=== PATIENT | male | born 1985 | race Caucasian/White ===

== ENCOUNTER 2020-09-22 15:31 | Emergency (ER) | payer OTHER, SELFPAY ==
--- NOTE | ~2020-09-22 | XR_ITS ---
XR sternum min 2V DATE: 09/22/2020 16:29 INDICATION: Squeezing injury. Sternal and right anterior rib pain TECHNIQUE: AP and lateral views. COMPARISON: None FINDINGS: No sternal fracture or bone destruction is evident. IMPRESSION: Negative Reviewed, dictated and finalized at location A. OR BUDGET ANALYST IMPRESSION: Negative
--- NOTE | ~2020-09-22 | XR_ITS ---
XR ribs RT 2V w CXR 2V DATE: 09/22/2020 16:29 INDICATION: Wheezing injury. Pain of the sternum and right anterior ribs TECHNIQUE: Standing PA and lateral views of the chest. 3 views of the right ribs. COMPARISON: 09/22/2020 sternum FINDINGS: Bilateral hyperinflation. No pulmonary infiltrate or consolidation, pleural effusion or pul monary vascular congestion or pneumothorax. Normal heart size. No hilar or mediastinal enlargement. No right rib fracture or bone destruction is evident. IMPRESSION: Bilateral hyperinflation Reviewed, dictated and finalized at location A. GIOUS EDUCATION TEACHER IMPRESSION: Bilateral hyperinflation
[2020-09-22 15:41] VITALS: BP 143/77; PULSE 93; RESP 16; TEMP 36.9; O2SAT 99
--- NOTE | 2020-09-22 16:11 | ED.GENADULT ---
HPI - General Adult General Chief complaint: Back Pain/Injury Stated complaint: rib pain Time Seen by Provider: 09/22/20 16:10 Source: patient Mode of arrival: ambulatory Limitations: no limitations History of Present Illness HPI narrative: 35-year-old male patient presents to the [facility] with complaints of midsternal and right-sided rib pain for the past 3 days. Patient states that one of his coworkers was popping peoples back at work about 3 days ago and went to bear hug him and pulling backwards to pop his back and states he felt some popping to the right side of his ribs and since then has been having pain. Patient states the pain is a little bit better today but for the past 3 days he has had pain when he breathes in, laughs coughs and feels like he is having trouble breathing. Denies any fevers, body aches or chills. Patient states he has been taking Tylenol for the pain. Related Data Home Medications Medication Instructions Recorded Confirmed No Home Medications 09/22/20 09/22/20 Allergies Allergy/AdvReac Type Severity Reaction Status Date / Time naproxen AdvReac Unknown BLOOD IN Verified 11/26/17 21:01 STOOLS Review of Systems Review of Systems: Narrative: CONSTITUTIONAL: Denies fever, chills, or sweats. EYES: Denies visual changes, redness, or discharge. ENT: Denies rhinorrhea, congestion, sore throat, or otalgia. CARDIOVASCULAR: Positive right-sided and midsternal chest and rib pain, denies palpitations, or edema. RESPIRATORY: Denies cough or dyspnea. GASTROINTESTINAL: Denies abdominal pain, nausea, vomiting, or diarrhea. GENITOURINARY: Denies dysuria or hematuria. SKIN: Denies rash or itching. MUSCULOSKELETAL: Denies back pain, joint pain, or myalgia. NEUROLOGIC: Denies headache, numbness, or weakness. PSYCHIATRIC: Denies anxiety or depression. [facility] Past Medical History Medical History (Updated 09/22/20 @ 16:40 by HEATHER Garcia) Hiatal hernia Left wrist fracture Stomach ulcer Social History Social History (Updated 09/22/20 @ 16:13 by HEATHER Garcia) Smoking status: Current every day smoker Gender identity (if verbalized by the patient): Male Comments At the time of my signature I agree with nursing past medical history, surgical, social, and family history. There is no relevant family history pertinent to the presenting complaint. Exam Narrative: Exam Narrative: GENERAL: Well-appearing, well-nourished, and in no acute distress. HEAD: Normocephalic, atraumatic. EYES: PERRLA and EOMI. ENT: Nares clear, no rhinorrhea or epistaxis. Mucous membranes moist. NECK: Supple. No lymphadenopathy CHEST: Clear to auscultation. No respiratory distress. Patient able talk clear complete sentences. No tripoding noted. No specific tenderness palpation to the right side of the ribs noted at this time. HEART: Regular rate and rhythm. No murmur heard. Normal peripheral pulses. ABDOMEN: Soft, nontender, nondistended, normal active bowel sounds. EXTREMITIES: Normal range of motion. No edema. SKIN: Warm, dry, no rash. NEURO: No focal deficits. Alert and oriented x3. Course Reevaluation(s) Reevaluation #1: Reevaluated patient after x-rays had resulted. Discussed with him that there is no evidence of a rib fracture and the sternum looks okay and the x-rays. Discussed with patient this most likely is some type of muscle strain to the chest wall. Discussed with him that the fact that his pain is getting better especially when using the Tylenol is reassuring. Discussed with patient I encouraged him to continue using Tylenol or ibuprofen as needed for pain also encourage some gentle stretching exercises as well as a heating pad to the painful areas. Discussed with patient I would give it anywhere from 10 days to 2 weeks to fully heal however if he continues to have worsening symptoms such as shortness of breath, worsening chest pain, low-grade fevers or any other concerning symptoms I would advise
== END 2020-09-22 16:42 | disposition home or self-care (01) ==
PROVIDERS: Emergency Provider Nurse Practitioner Family
DX: S29.011A Strain of muscle and tendon of front wall of thorax, initial encounter (principal); S21.101A Unspecified open wound of right front wall of thorax without penetration into thoracic cavity, initial encounter; X58.XXXA Exposure to other specified factors, initial encounter; F17.200 Nicotine dependence, unspecified, uncomplicated
CPT/HCPCS: 71046; 71100; 71120; 99213; G0463